=== PATIENT | female | born 1975 | race Caucasian/White ===

== ENCOUNTER → 2022-06-19 | Outpatient (CLI) | payer OTHER ==
[2022-06-19 14:18] LABS: C REACTIVE PROTEIN QUANTITATIV 0.66 MG/DL (0.00-0.30); RHEUMATOID FACTOR QUANT < 10.0 IU/ML (<15.0)
== END ==
LOC: M PLALAB 10:09
PROVIDERS: ATTEND Physician Assistant
DX: M25.472 Effusion, left ankle (principal)